=== PATIENT | male | born 1995 | race Caucasian/White ===

== ENCOUNTER 2017-03-27 03:05 | Emergency (ER) | payer MEDICAID, OTHER ==
[~2017-03-27] VITALS: Ht 190.5 cm; Wt 79.4 kg
[2017-03-27 03:11] VITALS: BP 137/61
--- NOTE | 2017-03-27 03:14 | NUR ---
21 Y/O M W/C/O SORETHROAT AND HEADACHES X 2-3 DAYS. PT DENIES ANY FEVER OR CHILLS. TONSILS APPEAR SWOLLEN. NO S/S OF RESP DISTRESS NOTED. ER MD MADE AWARE.
--- NOTE | 2017-03-27 03:14 | NUR ---
PT TAKEN TO BED 6
--- NOTE | 2017-03-27 03:23 | NUR ---
Dr. Griffin evaluating patient at bedside.
[2017-03-27] MEDS ORDERED: DEXAMETHASONE 10 MG/ML VIAL PO ONE (03:35)
[2017-03-27] MEDS ORDERED: ACETAMINOPHEN EXTRA STRENGTH 500 MG TAB ONE (04:03)
[2017-03-27 04:27] VITALS: BP 120/59
--- NOTE | 2017-03-27 04:27 | NUR ---
Patient discharged with v/s stable. Written and verbal after care instructions given and explained. Patient alert, oriented and verbalized understanding of instructions. Ambulatory with steady gait. All questions addressed prior to discharge. ID band removed. Patient advised to follow up with PMD THIS WK OR RETURN TO ER IF CONDITION WORSENS. Rx of TYLENOL WITH CODEINE PT ADVISED NOT TO TAKE TYLENOL UNTIL 10:00 AM D/T TYLENOL JUST ADMINISTERED AT 0400 AM TODAY. ALSO AN RX FOR NAPROSYN, AND AMOXICILLIN given. Patient educated on indication of medication including possible reaction and side effects. Opportunity to ask questions provided and answered.
== END 2017-03-27 04:27 | disposition home or self-care (01) ==
LOC: MED 03:05
DX: J02.9 Acute pharyngitis, unspecified (principal); F12.90 Cannabis use, unspecified, uncomplicated; Z88.8 Allergy status to other drugs, medicaments and biological substances
CPT/HCPCS: 99283; J1100

== ENCOUNTER 2019-09-25 07:51 | Emergency (ER) | payer MEDICAID ==
[~2019-09-25] VITALS: Ht 188 cm; Wt 77.1 kg
[~2019-09-25 07:51] MED LIST: DIVA250E1 PO; ESCI20TA47 PO
[2019-09-25 07:54] VITALS: BP 125/83
--- NOTE | 2019-09-25 07:58 | NUR ---
PT TO ED WITH C/O DYSURIA, WHITE PENILE DISCHARGE, AND REDNESS AROUND PENIS S/P UNPROTECTED SEX X 3 DAYS AGO. DENIES MULTIPLE PARTNERS. IN BED FOR MD DUKE.
--- NOTE | 2019-09-25 07:59 | NUR ---
Pt taken to bed 9.
[2019-09-25] MEDS ORDERED: AZITHROMYCIN 250 MG TAB PO ONE (08:30)
[2019-09-25] MEDS ORDERED: cefTRIAXone 1,000 MG in LIDOCAINE MPF 1% 2.1 ML IM ONE (08:30)
[2019-09-25 08:34] LABS: APPEARANCE,URINE HAZY (CLEAR); BILIRUBIN,URINE NEGATIVE (NEGATIVE); BLOOD, URINE TRACE-L (NEGATIVE); COLOR,URINE YELLOW (YELLOW); LEUKOCYTE ESTERASE ,URINE TRACE (NEGATIVE); NITRITE, URINE NEGATIVE (NEGATIVE); UGLUCOSE NEGATIVE (NEGATIVE)
--- NOTE | 2019-09-25 09:14 | NUR ---
Pt report given to Adriana Cuenca Transfer of care at this time.
[2019-09-25 09:26] LABS: WBC,URINE 20-60 /HPF (0-5)
[2019-09-25 09:36] VITALS: BP 125/83
--- NOTE | 2019-09-25 09:36 | NUR ---
PT LEFT FACILITY WITHOUT DISCHARGE INSTRUCTIONS. DR BAILEY AWARE.
[2019-09-28 06:07] LABS: CHLAMYDIA TRACHOMATIS AMP DNA Positive (Negative)
--- NOTE | 2019-09-28 09:14 | NUR ---
Called patient regarding positive lab results for gonnorhea & chamydia. Per Dr. Salgado, the antibiotics pt received while in ER 09/25/19 will suffice and no other medication is needed. Pt is aware.
== END 2019-09-25 09:36 | disposition home or self-care (01) ==
LOC: MED 07:51
DX: A64 Unspecified sexually transmitted disease (principal); Z79.899 Other long term (current) drug therapy; Z88.8 Allergy status to other drugs, medicaments and biological substances
CPT/HCPCS: 36415; 81001; 87086; 96372; 99283; J0696; J2001; 87491